=== PATIENT | male | born 1935 | race Caucasian/White ===

== ENCOUNTER 2016-08-31 00:03 | Day surgery (SDC) | payer MEDICARE ==
[~2016-08-31] VITALS: Ht 172.7 cm; Wt 84.0 kg
[2016-08-31] VITALS (8 sets, daily range): BP systolic 118–144; BP diastolic 59–80; PULSE 58–70; RESP 12–16; O2SAT 93–98
[~2016-08-31 00:03] MED LIST: ARGI500T PO; ASCO-294 PO; ASPI-973 PO; CHOL200025 PO; CYAN500 PO; LISI-567 PO; MULT1CAP33 PO; OMEG300C3 PO; ROSU20TA27 PO; SILD100T PO; UBID100C25 PO; WARF7.5T2 PO
--- NOTE | 2016-08-31 06:00 | NUR ---
ADMISSION NOTE MALE PT ADMITTED FOR GENERATOR CHANGE. DISCUSSED PLAN OF CARE WITH PT AND , SEE ADMIT AND FLOW SHEET
[2016-08-31] MEDS ORDERED: 0.9% Sodium Chloride 1,000 ML IV SCH ×2 (06:05→09:00)
[2016-08-31] MEDS ORDERED: Vancomycin Inj 1,000 MG in IV Premix 1 EACH IV ONE (06:10)
[2016-08-31] MEDS ORDERED: WARF7.5T4 PO (07:22)
[2016-08-31 07:38] LABS: BASOPHILS % (AUTO) 0.2 % (0-3); MONOCYTES % (AUTO) 10.9 % (4-12); Mean Corpuscular Hemoglobin 30.2 pg (27.0-35.0); Mean Corpuscular Volume 94.3 fL (81-100); NEUTROPHILS % (AUTO) 59.6 % (40-74); Platelet Count 174 bil/L (150-400)
[2016-08-31 07:53] LABS: INR 1.27 ratio
[2016-08-31] MEDS ORDERED: Bupivacaine-MPF 0.5% 30 mL Inj ONE (08:00)
[2016-08-31] MEDS ORDERED: Heparin 5,000 Units/500 mL NS Premix IV ONE (08:00)
[2016-08-31] MEDS ORDERED: fentaNYL-PF 50 mCg/mL 2 mL Inj ONE (08:00)
[2016-08-31] MEDS ORDERED: 0.9% Sodium Chloride 250 ML ONE (08:01)
[2016-08-31] MEDS ORDERED: Vancomycin 1,000 mg Inj ONE (08:01)
[2016-08-31] MEDS ORDERED: Water for Injection 50 ML IV ONE (08:01)
[2016-08-31] MEDS ORDERED: HYDROcodone-APAP 5-325 mg Tablet PO PRN (09:00)
[2016-08-31] MEDS ORDERED: Ondansetron 2 mg/mL 2 mL Inj IVPUSH PRN (09:00)
--- NOTE | 2016-08-31 09:26 | NUR ---
POST PROCEDURE NOTE RETURNED FROM [facility]LLER.SEE FLOW SHEET
--- NOTE | 2016-08-31 10:23 | OP ---
[address] [address] OPERATIVE REPORT PATIENT: MEMO NOWAK : 1935 MR#: [id number] ADMIT: 08/31/2016 JOB ID: [id number] DATE OF SURGERY: 08/31/2016 PREOPERATIVE DIAGNOSIS(ES): Dual-chamber ICD generator battery depletion. POSTOPERATIVE DIAGNOSIS(ES): Dual-chamber ICD generator battery depletion. PROCEDURES PERFORMED: Dual-chamber ICD generator replacement. SURGEON: Federico Avina M.D., electrophysiology attending. GAS CUTTING MACHINE OPERATOR: Kayode Ortiz. IMPLANTED DEVICE: [employer] pulse generator, model CD 2411-36, serial #[id number]. EXPLANTED DEVICE: [employer], 2207-36, serial #[id number]. CHRONIC DEVICES: 1. Right atrial lead [employer] 4269, serial #[id number]. 2. RV lead [employer] 0.25, serial #[id number]. ANESTHESIA: Bolus dosing of Versed and fentanyl were utilized for appropriate level of sedation. 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 His battery has depleted and he is here for a generator replacement. He rarely paces in either chamber. His atrial lead is known to function poorly with a high threshold and low sensed amplitude P waves. We are not going to address this lead as he rarely uses it. We will keep it plugged into port relief for discrimination purposes. PROCEDURAL DESCRIPTION: Following informed signed consent, the patient was taken to the EP laboratory in a fasting nonsedated state where the area was prepped and draped in the usual sterile fashion. The left clavicular surgical scar was infiltrated with 30 cc of a 50/50 mixture of bupivacaine and lidocaine. Once adequate anesthesia had been achieved, a 4 cm incision was performed in an elliptical fashion encompassing the patient's keloid. Dissection was carried down on the capsule and the leads and generator were freed loose of adhesions. The leads were inspected to be intact. The pocket was copiously irrigated with antibiotic solution. The chronic leads were connected to the generator. The entire system was then replaced into the capsule. The incision was closed with running layers of absorbable suture. The wound was dressed with skin adhesive and a small dressing. At the end of the procedure, needle, sponge and instrument counts were all correct. COMPLICATIONS: None. ESTIMATED BLOOD LOSS: 5 cc. DEVICE MEASURED DATA: 1. Right atrial lead 0.6 mV, 390 ohms. 2. RV lead 11.2 mV, 430 ohms, 1.25 V at 0.5 msec. FINAL PROGRAM PARAMETERS: 1. VVI 50 beats per minute. 2. VT monitor zone at 150 beats per minute. 3. VF zone at 200 beats per minute with ATP during charge followed by maximum output shocks. Of note, the device was intentionally programmed VVI to save battery life. IMPRESSION: Successful dual-chamber ICD generator replacement. PLAN: 1. Recovery and discharge from the [facility]. 2. Doxycycline 100 mg p.o. daily x7 days. 3. Wound check in one week. 4. Warfarin 10 mg today with an INR checked tomorrow. ATTENDING STATEMENT: Federico Avina M.D., electrophysiology attending was present for and supervised/performed all aspects of this procedure.
--- NOTE | 2016-08-31 11:45 | NUR ---
DISCHARGED TO HOME, INSTRUCTIONS GIVEN
== END 2016-08-31 23:59 | disposition home or self-care (01) ==
LOC: SOUO 00:03
PROVIDERS: ATTEND Internal Medicine Cardiovascular Disease
DX: Z45.02 Encounter for adjustment and management of automatic implantable cardiac defibrillator (principal); I25.5 Ischemic cardiomyopathy; I10 Essential (primary) hypertension; E78.5 Hyperlipidemia, unspecified; Z79.01 Long term (current) use of anticoagulants; Z95.2 Presence of prosthetic heart valve; I25.2 Old myocardial infarction; Z95.1 Presence of aortocoronary bypass graft
CPT/HCPCS: 33263; 36415; 80048; 85025; 85610; 99152; 99153; C1721; C1769; J1644; J2250; J3010; J3370; J7030; J7050